=== PATIENT | male | born 1965 | race Hispanic/Latino ===

== ENCOUNTER 2020-07-29 18:19 | Emergency (ER) | payer BC, OTHER ==
[2020-07-29] MEDS ORDERED: HYDROCODONE/ACETAMINOPHEN 10/325 MG TAB ONE (18:51)
[2020-07-29] MEDS ORDERED: CYCLOBENZAPRINE HCL 10 MG TABLET ONE (18:51)
== END 2020-07-29 20:49 | disposition home or self-care (01) ==
LOC: EDH 18:19
DX: S16.1XXA Strain of muscle, fascia and tendon at neck level, initial encounter (principal); S20.219A Contusion of unspecified front wall of thorax, initial encounter; S09.90XA Unspecified injury of head, initial encounter; E11.9 Type 2 diabetes mellitus without complications; V49.49XA Driver injured in collision with other motor vehicles in traffic accident, initial encounter; Y93.89 Activity, other specified; Y92.89 Other specified places as the place of occurrence of the external cause; Y99.8 Other external cause status
CPT/HCPCS: 70450; 71045; 72125

== ENCOUNTER → 2021-07-04 | Outpatient (CLI) | payer BC | END | disposition home or self-care (01) | LOC: LAB 08:39 | PROVIDERS: ATTEND Internal Medicine Gastroenterology | DX: K29.80 Duodenitis without bleeding (principal) | CPT/HCPCS: 36415; 82784; 83516 ==